=== PATIENT | male | born 1980 | race Caucasian/White ===

== ENCOUNTER 2018-12-04 10:59 | Emergency (ER) | payer OTHER ==
[~2018-12-04] VITALS: Ht 180.3 cm; Wt 159.2 kg
--- NOTE | 2018-12-04 11:15 | NUR ---
Lt lower extremity evelated with x2 pillows.
--- NOTE | 2018-12-04 11:23 | ED General ---
General Chief Complaint: Bite-Animal/Human/Insect Stated Complaint: SNAKE BITE Nursing Triage Note: Pt amb to room #5 w/o difficulty. a&ox4. C/o possible snake bite that occured @ approx 2100 on 12/03/18. Pt reports he was stepping out of his truck when he felt a bite and saw "a brown snake slither away." Mild redness, swelling noted to rt medial ankle. Tympanic temp of 100.4 noted. Nursing Sepsis Screen: No Definite Risk Source of Information: Patient Exam Limitations: No Limitations History of Present Illness Date Seen by Provider: Dec 04, 2018 Time Seen by Provider: 10:56 Initial Comments Here with report states bite to the medial aspect of the right ankle. Occurred at about 9 PM last night. He felt something sting or bite his legs when he stepped out of his truck and the area of concern just above the right ankle. She then noticed a brown snake slithering away. He marked the area last night and kept the leg below the level of the heart overnight. He went to work this morning. He worked about 4 hours but pain increased so he came here. Does note swelling. Did find that he had fever on arrival of 100.4F. He has not taken anything for pain or fever. He is unsure of the type of snake. Timing/Duration: Other (14 hours) Severity: Mild Modifying Factors: worse with Movement; improves with Rest Associated Systoms: Fever/Chills; No Nausea/Vomiting, No Shortness of Air, No Weakness Allergies and Home Medications Allergies Coded Allergies: Penicillins (Verified Allergy, Unknown, 12/04/18) Patient Home Medication List Home Medication List Reviewed: Yes Review of Systems Review of Systems Constitutional: see HPI; No chills; fever EENTM: nose congestion; No throat pain Respiratory: no symptoms reported Cardiovascular: no symptoms reported Gastrointestinal: No abdominal pain, No nausea, No vomiting Genitourinary: no symptoms reported Musculoskeletal: see HPI, muscle pain, other (swelling right lower extremity) Skin: change in color, lesions Psychiatric/Neurological: No Symptoms Reported All Other Systems Reviewed Negative Unless Noted: Yes Past Bvwrrvj-Ajylmq-Ncoynn Hx Past Med/Social Hx: Reviewed Nursing Past Med/Soc Hx Patient Social History Alcohol Use: Denies Use Recreational Drug Use: No Smoking Status: Never a Smoker Recent Foreign Travel: No Contact w/Someone Who Travel: No Recent Infectious Disease Expo: No Past Medical History Surgeries: Yes Appendectomy, Orthopedic, Tonsillectomy Respiratory: No Cardiac: Yes Hypertension Neurological: No Gastrointestinal: No Musculoskeletal: Yes Fractures Endocrine: Yes Diabetes, Non-Insulin dep Did You Recieve Any Treatments: No Psychosocial: No Family Medical History Cancer Physical Exam Vital Signs Vital Signs - First Documented 12/04/18 10:59 Temp 100.4 Pulse 96 Resp 18 B/P (MAP) 164/102 (122) Pulse Ox 97 O2 Delivery Room Air Capillary Refill : Less Than 3 Seconds Height, Weight, BMI Height: 5'11.00" Weight: 351lbs. oz. 159.551486gv; BMI Method:Stated General Appearance: No Apparent Distress, WD/WN HEENT: PERRL/EOMI, TMs Normal, Pharynx Normal Neck: Non Tender, Supple Respiratory: Lungs Clear, Normal Breath Sounds Cardiovascular: Regular Rate, Rhythm, No Murmur Gastrointestinal: Non Tender, Soft Back: Normal Inspection, No CVA Tenderness, No Vertebral Tenderness Extremity: Swelling (right lower extremity swelling from. Ankle to just below the knee. Tenderness noted to the medial aspect of the right lower leg where was noted.) Neurologic/Psychiatric: Alert, Oriented x3 Skin: Warm/Dry, Other (to puncture wounds noted to the medial right lower leg just above the ankle. There is surrounding erythema to the mid calf and down to the upper foot that is mild. There is swelling noted and tenderness to touch in the area of the wound and surrounding about 10 cm.) Progress/Results/Core Measures Suspected Sepsis Recent Fever Within 48 Hours: Yes Infection Criteria Present: None New/Unexplained Altered Menta: No Sepsis Screen: No Definite Risk SIRS Temperature:100.4 Pulse: 96 Respiratory Rate: 18 Laboratory Tests 12/04/18 11:20: White Blood Count 8.1 Blood Pressure 164 /102 Mean: 122 Laboratory Tests 12/04/18 11:20: Creatinine 1.02, INR Comment 1.0, Platelet Count 213, Total Bilirubin 0.6 Results/Orders Lab Results Laboratory Tests Test 12/04/18 11:20 Range/Units White Blood Count 8.1 4.3-11.0 10^3/uL Red Blood Count 5.03 4.35-5.85 10^6/uL Hemoglobin 14.2 13.3-17.7 G/DL Hematocrit 43 40-54 % Mean Corpuscular Volume 85 80-99 FL Mean Corpuscular Hemoglobin 28 25-34 PG Mean Corpuscular Hemoglobin Concent 33 32-36 G/DL Red Cell Distribution Width 14.0 10.0-14.5 % Platelet Count 213 130-400 10^3/uL Mean Platelet Volume 10.8 H 7.4-10.4 FL Neutrophils (%) (Auto) 70 42-75 % Lymphocytes (%) (Auto) 21 12-44 % Monocytes (%) (Auto) 8 0-12 % Eosinophils (%) (Auto) 1 0-10 % Basophils (%) (Auto) 0 0-10 % Neutrophils # (Auto) 5.7 1.8-7.8 X 10^3 Lymphocytes # (Auto) 1.7 1.0-4.0 X 10^3 Monocytes # (Auto) 0.6 0.0-1.0 X 10^3 Eosinophils # (Auto) 0.1 0.0-0.3 10^3/uL Basophils # (Auto) 0.0 0.0-0.1 10^3/uL Prothrombin Time 13.7 12.2-14.7 SEC INR Comment 1.0 0.8-1.4 Activated Partial Thromboplast Time 31 24-35 SEC Fibrinogen 368 221-496 MG/DL Sodium Level 142 135-145 MMOL/L Potassium Level 3.3 L 3.6-5.0 MMOL/L Chloride Level 106 98-107 MMOL/L Carbon Dioxide Level 24 21-32 MMOL/L Anion Gap 12 5-14 MMOL/L Blood Urea Nitrogen 12 7-18 MG/DL Creatinine 1.02 0.60-1.30 MG/DL Estimat Glomerular Filtration Rate > 60 BUN/Creatinine Ratio 12 Glucose Level 127 H 70-105 MG/DL Calcium Level 9.1 8.5-10.1 MG/DL Corrected Calcium 9.1 8.5-10.1 MG/DL Total Bilirubin 0.6 0.1-1.0 MG/DL Aspartate Amino Transf (AST/SGOT) 24 5-34 U/L Alanine Aminotransferase (ALT/SGPT) 28 0-55 U/L Alkaline Phosphatase 77 40-136 U/L Total Protein 7.4 6.4-8.2 GM/DL Albumin 4.0 3.2-4.5 GM/DL My Orders Orders - ALLISON MEEKS MD Cbc With Automated Diff (12/04/18 11:16) Comprehensive Metabolic Panel (12/04/18 11:16) Protime With Inr (12/04/18 11:16) Partial Thromboplastin Time (12/04/18 11:16) Fibrinogen (12/04/18 11:16) Acetaminophen Tablet (Tylenol Tablet) (12/04/18 11:42) Ibuprofen Tablet (Motrin Tablet) (12/04/18 11:53) Ibuprofen Tablet (Motrin Tablet) (12/04/18 12:00) Bactrim Ds Po (12/04/18 12:31) Tdap (Boostrix) Im (12/04/18 12:45) Vital Signs/I&O 12/04/18 12/04/18 10:59 12:01 Temp 100.4 100.4 Pulse 96 Resp 18 B/P (MAP) 164/102 (122) Pulse Ox 97 O2 Delivery Room Air Capillary Refill : Less Than 3 Seconds Blood Pressure Mean: 122 Progress Note : Progress Note Seen and evaluated. Patient is outside window for antivenom as he is 14 hours from snakebite. We will go ahead and check labs. Ibuprofen 800 mg by mouth and Tylenol 1 g by mouth ordered. Monitor patient. 1230: Labs reviewed and no significant abnormality. At this point, patient is past observation. And doing well. Does have local pain. We will go ahead and initiate antibiotics and update tetanus. Bactrim DS one tab by mouth. Discharged home with return precautions. Patient verbalize understanding instructions and agreement with plan. Departure Impression Primary Impression: Snake bite Qualified Codes: W59.11XA - Bitten by nonvenomous snake, initial encounter Disposition: 01 HOME, SELF-CARE Condition: Stable Departure-Patient Inst. Decision time for Depature: 12:34 Referrals: NO,LOCAL PHYSICIAN (PCP) Primary Care Physician Patient Instructions: Snake Bite Add. Discharge Instructions: All discharge instructions reviewed with patient and/or family. Voiced understanding. Keep area clean. Keep right leg elevated as much possible over the next couple of days. You may use ice pack to area of concern to reduce swelling. You may take ibuprofen 800 mg every 8 hours as needed for pain. You may also take Tylenol/acetaminophen 1000 mg every 8 hours as needed for pain.. Off work today and tomorrow and then return as able. Return for worse pain, swelling, weakness, numbness of the leg, difficulty with walking, fever or other concerns as needed. Take medications as directed Scripts Sulfamethoxazole/Trimethoprim (Sulfamethoxazole-Tmp Ds Tablet) 1 Each Tablet 1 EACH PO BID, #14 TAB 0 Refills Prov: ALLISON MEEKS MD 12/04/18 ALLISON MEEKS MD Dec 04, 2018 11:23
[2018-12-04 11:31] LABS: BASOPHILS % (AUTO) 0 % (0-10); EOSINOPHILS # (AUTO) 0.1 10^3/uL (0.0-0.3); EOSINOPHILS % (AUTO) 1 % (0-10); HEMATOCRIT 43 % (40-54); HEMOGLOBIN 14.2 G/DL (13.3-17.7); LYMPHOCYTES # (AUTO) 1.7 X 10^3 (1.0-4.0); LYMPHOCYTES % (AUTO) 21 % (12-44); MEAN CORPUSCULAR HEMOGLOBIN 28 PG (25-34); MEAN CORPUSCULAR HGB CONC 33 G/DL (32-36); MEAN CORPUSCULAR VOLUME 85 FL (80-99); MEAN PLATELET VOLUME 10.8 FL (7.4-10.4); MONOCYTES # (AUTO) 0.6 X 10^3 (0.0-1.0); MONOCYTES % (AUTO) 8 % (0-12); NEUTROPHILS # (AUTO) 5.7 X 10^3 (1.8-7.8); NEUTROPHILS % (AUTO) 70 % (42-75); PLATELET COUNT 213 10^3/uL (130-400); WHITE BLOOD COUNT 8.1 10^3/uL (4.3-11.0)
[2018-12-04] MEDS ORDERED: ACETAMINOPHEN 500 MG TAB (TYLENOL) PO STA (11:42)
[2018-12-04] MEDS ORDERED: IBUPROFEN SUSP 100MG/5ML (MOTRIN) UDC PO ONE (11:45)
[2018-12-04 11:50] LABS: PROTHROMBIN TIME PATIENT 13.7 SEC (12.2-14.7)
[2018-12-04] MEDS ORDERED: IBUPROFEN 800 MG (MOTRIN) TAB PO ONE (11:53)
[2018-12-04 11:59] LABS: ALANINE AMINOTRANSFERASE 28 U/L (0-55); ALKALINE PHOSPHATASE 77 U/L (40-136); BILIRUBIN,TOTAL 0.6 MG/DL (0.1-1.0); BUN/CREATININE RATIO 12; CALCIUM 9.1 MG/DL (8.5-10.1); CARBON DIOXIDE 24 MMOL/L (21-32); CHLORIDE 106 MMOL/L (98-107); CREATININE SERUM 1.02 MG/DL (0.60-1.30); GFR ESTIMATED > 60; GLUCOSE 127 MG/DL (70-105); POTASSIUM 3.3 MMOL/L (3.6-5.0); SODIUM 142 MMOL/L (135-145); TOTAL PROTEIN 7.4 GM/DL (6.4-8.2)
[2018-12-04] MEDS ORDERED: IBUPROFEN 800 MG (MOTRIN) TAB PO STA (12:00)
[2018-12-04] MEDS ORDERED: TRIM/SULFAMETH 160/800 (SEPTRA DS) TAB PO STA (12:31)
[2018-12-04] MEDS ORDERED: SULF-222 PO (12:36)
[2018-12-04] MEDS ORDERED: TETANUS,DIPTH,PERTUSS P/F (BOOSTRIX) 0.5 ML VIAL IM ONE (12:45)
[2018-12-04 12:48] VITALS: BP 146/97
== END 2018-12-04 12:48 | disposition home or self-care (01) ==
LOC: ER 11:00
DX: S90.561A Insect bite (nonvenomous), right ankle, initial encounter (principal); I10 Essential (primary) hypertension; E11.9 Type 2 diabetes mellitus without complications; Z87.81 Personal history of (healed) traumatic fracture; Z88.0 Allergy status to penicillin; Z90.49 Acquired absence of other specified parts of digestive tract; Z90.89 Acquired absence of other organs; W59.11XA Bitten by nonvenomous snake, initial encounter
CPT/HCPCS: 36415; 80053; 85025; 85384; 85610; 85730; 90471; 90715

== ENCOUNTER → 2019-11-13 | Outpatient (CLI) | payer OTHER ==
[~2019-11-13] MED LIST: BARIUM for suspension 96% w/w (Vanilla Silq Medium Density) PO ONE; BARIUM for suspension 98% w/w (Vanilla Silq High Density) PO ONE; SULF-222 PO
--- NOTE | 2019-11-13 11:22 | Diagnostic Imaging Report ---
INDICATION: Reflux. Study is performed prior to bariatric surgery. Patient ingested effervescent crystals as well as thin and thick barium and imaging of the esophagus, stomach and proximal small bowel was performed. The esophagus has a smooth contour. No mass or stricture is identified. No gastroesophageal reflux or hiatal hernia is identified. Stomach is of normal configuration. Visualized proximal small bowel loops are unremarkable. IMPRESSION: Unremarkable upper gastrointestinal. Dictated by: Dictated on workstation # [id number]
== END ==
LOC: RAD 09:06
PROVIDERS: ATTEND Surgery
DX: K21.9 Gastro-esophageal reflux disease without esophagitis (principal)
CPT/HCPCS: 74246

== ENCOUNTER 2020-07-05 15:27 | Inpatient (IN) | payer OTHER ==
[~2020-07-05] VITALS: Ht 177.8 cm; Wt 185.5 kg
[~2020-07-05 15:27] MED LIST changes: -BARIUM for suspension 96% w/w (Vanilla Silq Medium Density) PO ONE; -BARIUM for suspension 98% w/w (Vanilla Silq High Density) PO ONE
--- NOTE | 2020-07-05 15:59 | ED General ---
General Stated Complaint: COVID POSITIVE/LOW O2/FEVER Source of Information: Patient Exam Limitations: No Limitations History of Present Illness Date Seen by Provider: Jul 05, 2020 Time Seen by Provider: 15:56 Initial Comments To ER with reports of shortness of breath. He is on day 8 of Covid illness tested +7 days ago. Oxygen saturation at home 88 to 92%. Type II diabetic. Not currently on medication. Does not have a primary care provider. Timing/Duration: 1 Week Severity: Moderate Associated Systoms: Cough, Shortness of Air, Weakness Allergies and Home Medications Allergies Coded Allergies: Penicillins (Verified Allergy, Unknown, 12/04/18) Home Medications Sulfamethoxazole/Trimethoprim 1 Each Tablet, 1 EACH PO BID Prescribed by: ALLISON MEEKS on 12/04/18 1236 Patient Home Medication List Home Medication List Reviewed: Yes Review of Systems Review of Systems Constitutional: see HPI, chills, malaise, weakness EENTM: see HPI Respiratory: see HPI, cough, short of breath Cardiovascular: no symptoms reported Genitourinary: no symptoms reported Musculoskeletal: no symptoms reported Skin: no symptoms reported Psychiatric/Neurological: No Symptoms Reported Hematologic/Lymphatic: No Symptoms Reported Immunological/Allergic: no symptoms reported Past Fjuidlw-Vjgwxk-Pbrtgd Hx Patient Social History 2nd Hand Smoke Exposure: No Recent Hopitalizations: No Seasonal Allergies Seasonal Allergies: No Past Medical History Surgeries: Yes Appendectomy, Orthopedic, Tonsillectomy Respiratory: No Cardiac: Yes Hypertension Neurological: No Genitourinary: No Gastrointestinal: No Musculoskeletal: Yes Fractures Endocrine: Yes Diabetes, Non-Insulin dep HEENT: No Cancer: No Did You Recieve Any Treatments: No Psychosocial: No Integumentary: No Family Medical History Cancer Physical Exam Vital Signs Vital Signs - First Documented 07/05/20 15:50 Pulse Ox 96 O2 Delivery Nasal Cannula Capillary Refill : Height, Weight, BMI Height: 5'11.00" Weight: 351lbs. oz. 159.096456tz; BMI Method:Stated General Appearance: No Apparent Distress, WD/WN, Obese, Other (Tachypneic, oxygen saturation 87% on room air after arriving to room 9 via wheelchair. Very pleasant.) Eyes: Bilateral Eye Normal Inspection, Bilateral Eye PERRL Respiratory: Normal Breath Sounds, No Accessory Muscle Use, No Respiratory Distress Cardiovascular: Regular Rate, Rhythm, Normal Peripheral Pulses Gastrointestinal: Non Tender, Soft Extremity: Normal Capillary Refill, Normal Inspection Neurologic/Psychiatric: Alert, Oriented x3 Skin: Normal Color, Warm/Dry Progress/Results/Core Measures Suspected Sepsis SIRS Temperature: Pulse: Respiratory Rate: Laboratory Tests 07/05/20 16:00: Blood Pressure / Mean: Laboratory Tests 07/05/20 16:00: Results/Orders Lab Results Laboratory Tests Test 07/05/20 16:00 Range/Units My Orders Orders - GORDO BROWN APRN Cbc With Automated Diff (07/05/20 15:55) Hs C Reactive Protein (07/05/20 15:55) Comprehensive Metabolic Panel (07/05/20 15:55) Fibrin Degradation Products (07/05/20 15:55) Procalcitonin (Pct) (07/05/20 15:55) Ed Iv/Invasive Line Start (07/05/20 15:55) O2 (07/05/20 15:55) Chest 1 View, Ap/Pa Only (07/05/20 15:55) Dexamethasone Tablet (Decadron Tablet) (07/05/20 16:00) Ns Iv 1000 Ml (Sodium Chloride 0.9%) (07/05/20 16:00) Vital Signs/I&O 07/05/20 15:50 Pulse Ox 96 O2 Delivery Nasal Cannula Capillary Refill : Departure Communication (Admissions) 1616-Supplemental O2 at 2L has him up to 94% and has resolved his lightheadedne ss. Impression Primary Impression: Hypoxia Additional Impression: COVID-19 Disposition: ADMITTED INPATIENT Condition: Stable Admissions Decision to Admit Reason: Admit from ER (General) Decision to Admit/Date: Jul 05, 2020 Time/Decision to Admit Time: 16:16 Departure-Patient Inst. Referrals: NO,LOCAL PHYSICIAN (PCP/Family) Primary Care Physician GORDO BROWN APRN Jul 05, 2020 15:59
[2020-07-05] MEDS ORDERED: NS IV 1000 ML 1,000 ML IV SCH (16:00)
[2020-07-05] MEDS ORDERED: dexAMETHasone 6 MG TAB (DECADRON) PO SCH (16:00)
[2020-07-05 16:13] LABS: BASOPHILS % (AUTO) 0 % (0-10); EOSINOPHILS % (AUTO) 0 % (0-10); HEMATOCRIT 44 % (40-54); HEMOGLOBIN 14.6 g/dL (13.3-17.7); LYMPHOCYTES # (AUTO) 1.2 10^3/uL (1.0-4.0); LYMPHOCYTES % (AUTO) 19 % (12-44); MEAN CORPUSCULAR HEMOGLOBIN 28 pg (25-34); MEAN CORPUSCULAR HGB CONC 33 g/dL (32-36); MEAN CORPUSCULAR VOLUME 84 fL (80-99); MEAN PLATELET VOLUME 10.4 fL (9.0-12.2); MONOCYTES # (AUTO) 0.4 10^3/uL (0.0-1.0); MONOCYTES % (AUTO) 7 % (0-12); NEUTROPHILS # (AUTO) 4.6 10^3/uL (1.8-7.8); NEUTROPHILS % (AUTO) 74 % (42-75); PLATELET COUNT 150 10^3/uL (130-400); WHITE BLOOD COUNT 6.2 10^3/uL (4.3-11.0)
[2020-07-05 16:22] LABS: ALBUMIN 3.6 GM/DL (3.2-4.5); CHLORIDE 101 MMOL/L (98-107); POTASSIUM 3.4 MMOL/L (3.6-5.0); SODIUM 136 MMOL/L (135-145)
[2020-07-05 16:23] LABS: CALCIUM 8.3 MG/DL (8.5-10.1)
[2020-07-05 16:24] LABS: GLUCOSE 233 MG/DL (70-105); TOTAL PROTEIN 7.5 GM/DL (6.4-8.2)
[2020-07-05 16:25] LABS: CARBON DIOXIDE 26 MMOL/L (21-32)
[2020-07-05 16:27] LABS: ALKALINE PHOSPHATASE 59 U/L (40-136)
[2020-07-05 16:28] LABS: CREATININE SERUM 0.79 MG/DL (0.60-1.30); GFR ESTIMATED > 60
[2020-07-05 16:29] LABS: BUN/CREATININE RATIO 15
[2020-07-05 16:31] LABS: ALANINE AMINOTRANSFERASE 60 U/L (0-55)
--- NOTE | 2020-07-05 16:49 | Diagnostic Imaging Report ---
INDICATION: Shortness of breath, Covid positive. TECHNIQUE/COMPARISON: A frontal chest was obtained at 4:34 PM. There is no prior study for comparison. FINDINGS: The heart is normal in size. The mediastinal silhouette is unremarkable. There are patchy areas of infiltrate in the lung bases on both sides, suspicious for pneumonia. There is no pneumothorax or pleural fluid. There is some linear atelectatic change in the right midlung versus a trace of fluid in the minor fissure. IMPRESSION: Patchy bibasilar infiltrates are present, suspicious for pneumonia. There is linear opacity in the right midlung which may represent fluid in the minor fissure or atelectasis. The report was faxed to Infection Control by erna@4:48 PM. Dictated by: Dictated on workstation # [id number]
[2020-07-05] MEDS ORDERED: ONDANSETRON 4 MG/2 ML (SDV) Z0FRAN IV PRN (18:45)
[2020-07-05] MEDS ORDERED: IBUPROFEN 600 MG (MOTRIN) TAB PO PRN (18:45)
[2020-07-05] MEDS ORDERED: PROMETHAZINE/ CODEINE SYRUP 5 ML UDC PO PRN (18:45)
[2020-07-05] MEDS ORDERED: CATHETER FLUSH 10 ML SYR IV PRN (19:00)
[2020-07-05] MEDS ORDERED: REMDESIVIR 200 MG/NS 250 ML IVPB IV NR ×2 (19:00)
[2020-07-05] MEDS ORDERED: RT-ALBUTEROL INHALER HFA (VENTOLIN HFA) 18 GM IH PRN (19:30)
[2020-07-05] MEDS: LACTATED RINGERS 1,000 ML IV SCH (19:51)
[2020-07-05] MEDS: ENOXAPARIN 60 MG/0.6 ML (LOVENOX) SYR SC SCH ×2 (19:51→19:54)
[2020-07-05 20:11] VITALS: BP 143/87
[2020-07-05] MEDS: inSUlin ASPART (NovoLOG) 1 UNIT/0.01 ML (CHARGE PER UNIT) SC SCH (20:59)
[2020-07-05] MEDS: RT-ALBUTEROL INHALER HFA (VENTOLIN HFA) 18 GM IH SCH (21:13)
[2020-07-06] VITALS (10 sets, daily range): BP systolic 117–155; BP diastolic 66–90
[2020-07-06] MEDS: LACTATED RINGERS 1,000 ML IV SCH ×3 (04:00→23:21)
[2020-07-06 05:04] LABS: BASOPHILS % (AUTO) 0 % (0-10); EOSINOPHILS % (AUTO) 0 % (0-10); HEMATOCRIT 40 % (40-54); LYMPHOCYTES # (AUTO) 0.9 10^3/uL (1.0-4.0); LYMPHOCYTES % (AUTO) 20 % (12-44); MEAN CORPUSCULAR HEMOGLOBIN 28 pg (25-34); MEAN CORPUSCULAR HGB CONC 32 g/dL (32-36); MEAN CORPUSCULAR VOLUME 87 fL (80-99); MEAN PLATELET VOLUME 10.6 fL (9.0-12.2); MONOCYTES # (AUTO) 0.3 10^3/uL (0.0-1.0); MONOCYTES % (AUTO) 6 % (0-12); NEUTROPHILS # (AUTO) 3.3 10^3/uL (1.8-7.8); NEUTROPHILS % (AUTO) 74 % (42-75); PLATELET COUNT 156 10^3/uL (130-400); WHITE BLOOD COUNT 4.5 10^3/uL (4.3-11.0)
[2020-07-06 05:15] LABS: ALBUMIN 3.3 GM/DL (3.2-4.5)
[2020-07-06 05:16] LABS: CHLORIDE 104 MMOL/L (98-107); POTASSIUM 4.1 MMOL/L (3.6-5.0); SODIUM 139 MMOL/L (135-145)
[2020-07-06 05:17] LABS: CALCIUM 7.8 MG/DL (8.5-10.1)
[2020-07-06 05:18] LABS: GLUCOSE 281 MG/DL (70-105); TOTAL PROTEIN 6.5 GM/DL (6.4-8.2)
[2020-07-06 05:19] LABS: CARBON DIOXIDE 25 MMOL/L (21-32)
[2020-07-06 05:20] LABS: BILIRUBIN,TOTAL 0.8 MG/DL (0.1-1.0)
[2020-07-06 05:21] LABS: ALKALINE PHOSPHATASE 56 U/L (40-136)
[2020-07-06 05:22] LABS: CREATININE SERUM 0.81 MG/DL (0.60-1.30); GFR ESTIMATED > 60
[2020-07-06 05:23] LABS: BUN/CREATININE RATIO 17
[2020-07-06 05:24] LABS: ALANINE AMINOTRANSFERASE 48 U/L (0-55)
[2020-07-06] MEDS: ENOXAPARIN 60 MG/0.6 ML (LOVENOX) SYR SC SCH ×2 (06:18→18:57)
[2020-07-06] MEDS: dexAMETHasone 6 MG TAB (DECADRON) PO SCH (06:20)
[2020-07-06] MEDS: inSUlin ASPART (NovoLOG) 1 UNIT/0.01 ML (CHARGE PER UNIT) SC SCH ×4 (06:20→21:45)
[2020-07-06] MEDS: RT-ALBUTEROL INHALER HFA (VENTOLIN HFA) 18 GM IH SCH ×2 (09:57→19:20)
[2020-07-06] MEDS ORDERED: NS IV 500 ML 500 ML ONE (11:19)
--- NOTE | 2020-07-06 11:25 | History & Physical-Hospitalist ---
History of Present Illness HPI/Chief Complaint Pt is a 39yoCM with a PMH of HTN and NIDDMII who presented to the ER due to hypoxia from known COVID. He states that his symptoms started around 9 days ago and he was monitoring his oyxgen levels at home. At rest they were roughly 88- 91% and when he got up to go to the bathroom they dropped to 80%. On arrival here they were 87% while being wheeled in. This morning he reports feeling somewhat better. He denies loss of taste, nausea, vomiting, diarrhea. Source: patient Date Seen 07/06/20 Time Seen by a Provider: 09:30 Attending Physician Blank Daigle MD PCP No,Local Physician Referring Physician Date of Admission Jul 05, 2020 at 17:14 Home Medications & Allergies Home Medications Reviewed patient Home Medication Reconciliation performed by pharmacy medication reconciliations computer field technician and/or nursing. Patients Allergies have been reviewed. Allergies Allergies Coded Allergies Penicillins (Verified Allergy, Unknown, 12/04/18) Past Pdflhjp-Hrfamk-Yqhpsf Hx Past Med/Social Hx: Reviewed Nursing Past Med/Soc Hx Patient Social History Employed/Student: employed Alcohol Use: Occasionally Uses Recreational Drug Use: No Smoking Status: Unknown if Ever Smoked 2nd Hand Smoke Exposure: No Recent Foreign Travel: No Contact w/other who traveled: No Recent Hopitalizations: No Recent Infectious Disease Expo: Yes (COVID + 06/28/2020) Immunizations Up To Date Date of Influenza Vaccine: Apr 04, 2021 Seasonal Allergies Seasonal Allergies: No Past Medical History Surgeries: Appendectomy, Orthopedic, Tonsillectomy Cardiac: Hypertension Musculoskeletal: Fractures Endocrine: Diabetes, Non-Insulin dep Did You Recieve Any Treatments: No Family History Reviewed Nursing Family Hx Cancer Review of Systems Constitutional: chills, fever, malaise EENTM: no symptoms reported Respiratory: cough, short of breath Cardiovascular: No chest pain, No edema, No Hx of Intervention, No palpitations Gastrointestinal: No abdominal pain, No constipation, No diarrhea, No loss of appetite, No nausea, No vomiting Genitourinary: no symptoms reported Musculoskeletal: no symptoms reported Skin: no symptoms reported Psychiatric/Neurological: No Symptoms Reported Physical Exam Physical Exam Vital Signs Vital Signs - First Documented 07/05/20 07/05/20 18:17 19:15 O2 Flow Rate 2.00 FiO2 28 Capillary Refill : Less Than 3 Seconds Height, Weight, BMI Height: 5'11.00" Weight: 351lbs. oz. 159.113849fc; 58.67 BMI Method:Stated General Appearance: No Apparent Distress, WD/WN, Obese HEENT: PERRL/EOMI, Moist Mucous Membranes; No Scleral Icterus (L), No Scleral Icterus (R) Neck: Normal Inspection, Supple Respiratory: Lungs Clear, No Accessory Muscle Use; No Crackles, No Wheezing; Other (nasal cannula out of nose) Cardiovascular: Regular Rate, Rhythm, No JVD, No Murmur Gastrointestinal: Normal Bowel Sounds, Non Tender, Soft Extremity: No Calf Tenderness, No Pedal Edema Neurologic/Psychiatric: Alert, Oriented x3, Normal Mood/Affect Results Results/Procedures Labs Laboratory Tests 07/05/20 16:00 07/06/20 04:43 Patient resulted labs reviewed. Imaging: Reviewed Imaging Report Imaging [facility], [place] NAME: [facility] REC#: [id number] PT STATUS: REG ER : 1980 PHYSICIAN: GORDO BROWN APRN ADMIT DATE: 07/05/20/ER Signed Date of Exam:07/05/20 CHEST 1 VIEW, AP/PA ONLY INDICATION: Shortness of breath, Covid positive. TECHNIQUE/COMPARISON: A frontal chest was obtained at 4:34 PM. There is no prior study for comparison. FINDINGS: The heart is normal in size. The mediastinal silhouette is unremarkable. There are patchy areas of infiltrate in the lung bases on both sides, suspicious for pneumonia. There is no pneumothorax or pleural fluid. There is some linear atelectatic change in the right midlung versus a trace of fluid in the minor fissure. IMPRESSION: Patchy bibasilar infiltrates are present, suspicious for pneumonia. There is linear opacity in the right midlung which may represent fluid in the minor fissure or atelectasis. The report was faxed to Infection Control by erna@4:48 PM. Dictated by: Dictated on workstation # [id number] Dict: 07/05/20 1645 Trans: 07/05/20 1658 [id number] Interpreted by: LINDSAY TRAN MD Electronically signed by: LINDSAY TRAN MD 07/05/20 6295 Assessment/Plan Admission Diagnosis Acute hypoxic respiratory failure due to COVID19 Admission Status: Inpatient Order (span 2 midnights) Reason for Inpatient Admission: see below Assessment and Plan Acute hypoxic respiratory failure due to COVID19 Continue remdesivir, and decadron Await arrival of convalescent plasma Incentive spirometry Lovenox Procal normal, no indication for abx HTN BP well controlled, trend NIDDMII SSI added Fasting blood sugar this AM 281 A1c, will need metformin likely upon discharge DVT ppx: Lovenox Diagnosis/Problems Diagnosis/Problems (1) Essential (primary) hypertension Status: Chronic (2) Obesity Qualifiers: Obesity type: unspecified obesity type Obesity classification: adult class 3 (BMI >= 40) Serious obesity comorbidity presence: without serious comorbidity Body mass index: BMI 50.0-59.9 Qualified Codes: E66.01 - Morbid (severe) obesity due to excess calories; Z68.43 - Body mass index [BMI] 50.0- 59.9, adult (3) Non-insulin dependent type 2 diabetes mellitus Status: Chronic (4) COVID-19 Status: Acute (5) Hypoxia Status: Acute BLANK DAIGLE MD Jul 06, 2020 11:25
[2020-07-06] MEDS: REMDESIVIR 100 MG/NS 250 ML IVPB IV SCH ×4 (17:38→18:58)
[2020-07-07] VITALS (7 sets, daily range): BP systolic 138–149; BP diastolic 75–93
[2020-07-07] MEDS: LACTATED RINGERS 1,000 ML IV SCH ×3 (02:45→23:17)
[2020-07-07 05:34] LABS: HEMOGLOBIN 12.3 g/dL (13.3-17.7)
[2020-07-07 05:39] LABS: ALBUMIN 3.1 GM/DL (3.2-4.5)
[2020-07-07 05:40] LABS: CHLORIDE 106 MMOL/L (98-107); POTASSIUM 3.7 MMOL/L (3.6-5.0); SODIUM 140 MMOL/L (135-145)
[2020-07-07 05:41] LABS: CALCIUM 7.8 MG/DL (8.5-10.1)
[2020-07-07 05:42] LABS: GLUCOSE 260 MG/DL (70-105)
[2020-07-07 05:43] LABS: CARBON DIOXIDE 24 MMOL/L (21-32)
[2020-07-07 05:44] LABS: BILIRUBIN,TOTAL 0.6 MG/DL (0.1-1.0)
[2020-07-07 05:45] LABS: ALKALINE PHOSPHATASE 52 U/L (40-136)
[2020-07-07 05:46] LABS: CREATININE SERUM 0.76 MG/DL (0.60-1.30); GFR ESTIMATED > 60
[2020-07-07 05:47] LABS: BUN/CREATININE RATIO 21
[2020-07-07 05:48] LABS: ALANINE AMINOTRANSFERASE 41 U/L (0-55)
[2020-07-07] MEDS: inSUlin ASPART (NovoLOG) 1 UNIT/0.01 ML (CHARGE PER UNIT) SC SCH ×4 (06:23→21:20)
[2020-07-07] MEDS: dexAMETHasone 6 MG TAB (DECADRON) PO SCH (06:23)
[2020-07-07] MEDS: ENOXAPARIN 60 MG/0.6 ML (LOVENOX) SYR SC SCH ×2 (06:25→18:07)
[2020-07-07] MEDS: RT-ALBUTEROL INHALER HFA (VENTOLIN HFA) 18 GM IH SCH ×2 (07:57→19:27)
[2020-07-07] MEDS ORDERED: BENZONATATE 100 MG (TESSALON) CAPSULE PO PRN (09:30)
--- NOTE | 2020-07-07 12:16 | Progress Note - Hospitalist ---
Subjective HPI/CC On Admission Date Seen by Provider: Jul 07, 2020 Time Seen by Provider: 12:13 Pt is a 39yoCM with a PMH of HTN and NIDDMII who presented to the ER due to hypoxia from known COVID. He states that his symptoms started around 9 days ago and he was monitoring his oyxgen levels at home. At rest they were roughly 88-91% and when he got up to go to the bathroom they dropped to 80%. On arrival here they were 87% while being wheeled in. This morning he reports feeling somewhat better. He denies loss of taste, nausea, vomiting, diarrhea. Subjective/Events-last exam Pt reports doing well. Still coughing and feeling fatigued but otherwise just still having malaise. Objective Exam Vital Signs Vital Signs Date Time Temp Pulse Resp B/P (MAP) Pulse Ox O2 Delivery O2 Flow Rate FiO2 07/07/20 08:00 36.3 76 18 138/75 (96) 93 Room Air 07/07/20 07:58 2.00 07/05/20 19:15 28 Capillary Refill : Less Than 3 Seconds General Appearance: No Apparent Distress, Obese Respiratory: Lungs Clear, No Accessory Muscle Use, No Respiratory Distress Cardiovascular: Regular Rate, Rhythm, No Murmur Gastrointestinal: Normal Bowel Sounds, Non Tender, Soft Neurologic/Psychiatric: Alert, Oriented x3 Results/Procedures Lab Laboratory Tests 07/07/20 05:06 Patient resulted labs reviewed. Imaging: Reviewed Imaging Report Assessment/Plan Assessment and Plan Assess & Plan/Chief Complaint Acute hypoxic respiratory failure due to COVID19 Continue remdesivir, and decadron s/p 1 unit of convalescent plasma Incentive spirometry Lovenox Procal normal, no indication for abx Add tessalon and honey for cough HTN BP well controlled, trend NIDDMII SSI added A1c, will need metformin likely upon discharge DVT ppx: Lovenox Diagnosis/Problems Diagnosis/Problems (1) Essential (primary) hypertension Status: Chronic (2) Obesity Qualifiers: Obesity type: unspecified obesity type Obesity classification: adult class 3 (BMI >= 40) Serious obesity comorbidity presence: without serious comorbidity Body mass index: BMI 50.0-59.9 Qualified Codes: E66.01 - Morbid (severe) obesity due to excess calories; Z68.43 - Body mass index [BMI] 50.0- 59.9, adult (3) Non-insulin dependent type 2 diabetes mellitus Status: Chronic (4) COVID-19 Status: Acute (5) Hypoxia Status: Acute BLANK JONES MD Jul 07, 2020 12:16
[2020-07-07] MEDS ORDERED: NS IV 1000 ML 1,000 ML IV ONE (14:00)
[2020-07-07] MEDS: REMDESIVIR 100 MG/NS 250 ML IVPB IV SCH ×2 (17:29)
[2020-07-08 05:13] VITALS: BP 156/98
[2020-07-08] MEDS: dexAMETHasone 6 MG TAB (DECADRON) PO SCH (05:18)
[2020-07-08] MEDS: ENOXAPARIN 60 MG/0.6 ML (LOVENOX) SYR SC SCH ×2 (05:18→18:06)
[2020-07-08 06:23] LABS: HEMOGLOBIN 12.8 g/dL (13.3-17.7); MEAN PLATELET VOLUME 11.1 fL (9.0-12.2); WHITE BLOOD COUNT 6.3 10^3/uL (4.3-11.0)
[2020-07-08 06:32] LABS: ALBUMIN 3.2 GM/DL (3.2-4.5); CHLORIDE 105 MMOL/L (98-107); POTASSIUM 3.5 MMOL/L (3.6-5.0); SODIUM 139 MMOL/L (135-145)
[2020-07-08 06:34] LABS: CALCIUM 7.8 MG/DL (8.5-10.1)
[2020-07-08 06:35] LABS: GLUCOSE 245 MG/DL (70-105); TOTAL PROTEIN 6.4 GM/DL (6.4-8.2)
[2020-07-08 06:36] LABS: CARBON DIOXIDE 24 MMOL/L (21-32)
[2020-07-08 06:37] LABS: BILIRUBIN,TOTAL 0.4 MG/DL (0.1-1.0)
[2020-07-08 06:38] LABS: ALKALINE PHOSPHATASE 57 U/L (40-136); CREATININE SERUM 0.77 MG/DL (0.60-1.30); GFR ESTIMATED > 60
[2020-07-08 06:40] LABS: BUN/CREATININE RATIO 18
[2020-07-08 06:41] LABS: ALANINE AMINOTRANSFERASE 41 U/L (0-55)
[2020-07-08] MEDS: inSUlin ASPART (NovoLOG) 1 UNIT/0.01 ML (CHARGE PER UNIT) SC SCH ×4 (06:53→21:13)
[2020-07-08] MEDS: LACTATED RINGERS 1,000 ML IV SCH (06:54)
[2020-07-08] MEDS: RT-ALBUTEROL INHALER HFA (VENTOLIN HFA) 18 GM IH SCH (07:15)
[2020-07-08 08:30] VITALS: BP 141/93
[2020-07-08 11:30] VITALS: BP 166/79
--- NOTE | 2020-07-08 13:33 | Progress Note - Hospitalist ---
Subjective HPI/CC On Admission Date Seen by Provider: Jul 08, 2020 Time Seen by Provider: 09:00 Pt is a 39yoCM with a PMH of HTN and NIDDMII who presented to the ER due to hypoxia from known COVID. He states that his symptoms started around 9 days ago and he was monitoring his oyxgen levels at home. At rest they were roughly 88-91% and when he got up to go to the bathroom they dropped to 80%. On arrival here they were 87% while being wheeled in. This morning he reports feeling somewhat better. He denies loss of taste, nausea, vomiting, diarrhea. Subjective/Events-last exam Pt reports doing well. No complaints. Still has some chest tightness. Objective Exam Vital Signs Vital Signs Date Time Temp Pulse Resp B/P (MAP) Pulse Ox O2 Delivery O2 Flow Rate FiO2 07/08/20 11:30 37.2 88 18 166/79 (108) 95 Room Air 07/07/20 20:35 2.00 07/05/20 19:15 28 Capillary Refill : Less Than 3 SecondsLess Than 3 Seconds General Appearance: No Apparent Distress, WD/WN, Obese Respiratory: Lungs Clear, No Respiratory Distress Cardiovascular: Regular Rate, Rhythm, No Murmur Neurologic/Psychiatric: Alert, Oriented x3 Results/Procedures Lab Laboratory Tests 07/08/20 05:50 Patient resulted labs reviewed. Imaging: Reviewed Imaging Report Assessment/Plan Assessment and Plan Assess & Plan/Chief Complaint Acute hypoxic respiratory failure due to COVID19 Continue remdesivir and decadron s/p 1 unit of convalescent plasma Incentive spirometry Lovenox Procal normal, no indication for abx Continue tessalon and honey for cough HTN BP well controlled, trend NIDDMII SSI added A1c 10.1, will need metformin upon discharge DVT ppx: Lovenox Diagnosis/Problems Diagnosis/Problems (1) Essential (primary) hypertension Status: Chronic (2) Obesity Qualifiers: Obesity type: unspecified obesity type Obesity classification: adult class 3 (BMI >= 40) Serious obesity comorbidity presence: without serious comorbidity Body mass index: BMI 50.0-59.9 Qualified Codes: E66.01 - Morbid (severe) obesity due to excess calories; Z68.43 - Body mass index [BMI] 50.0- 59.9, adult (3) Non-insulin dependent type 2 diabetes mellitus Status: Chronic (4) COVID-19 Status: Acute (5) Hypoxia Status: Acute BLANK JONES MD Jul 08, 2020 13:33
[2020-07-08 15:59] VITALS: BP 157/91
[2020-07-08] MEDS: REMDESIVIR 100 MG/NS 250 ML IVPB IV SCH ×2 (18:05)
[2020-07-08 20:09] VITALS: BP 149/79
[2020-07-08 23:31] VITALS: BP 134/86
[2020-07-09 06:34] LABS: HEMOGLOBIN 13.2 g/dL (13.3-17.7); MEAN PLATELET VOLUME 10.5 fL (9.0-12.2); WHITE BLOOD COUNT 5.8 10^3/uL (4.3-11.0)
[2020-07-09] MEDS: dexAMETHasone 6 MG TAB (DECADRON) PO SCH (06:41)
[2020-07-09] MEDS: ENOXAPARIN 60 MG/0.6 ML (LOVENOX) SYR SC SCH (06:42)
[2020-07-09 06:45] LABS: ALBUMIN 3.2 GM/DL (3.2-4.5)
[2020-07-09 06:46] LABS: CHLORIDE 105 MMOL/L (98-107); POTASSIUM 3.5 MMOL/L (3.6-5.0); SODIUM 141 MMOL/L (135-145)
[2020-07-09 06:47] LABS: CALCIUM 7.9 MG/DL (8.5-10.1)
[2020-07-09 06:48] LABS: GLUCOSE 215 MG/DL (70-105); TOTAL PROTEIN 6.6 GM/DL (6.4-8.2)
[2020-07-09 06:49] LABS: CARBON DIOXIDE 26 MMOL/L (21-32)
[2020-07-09 06:50] LABS: BILIRUBIN,TOTAL 0.5 MG/DL (0.1-1.0)
[2020-07-09 06:51] LABS: ALKALINE PHOSPHATASE 54 U/L (40-136)
[2020-07-09 06:52] LABS: CREATININE SERUM 0.84 MG/DL (0.60-1.30); GFR ESTIMATED > 60
[2020-07-09 06:53] LABS: BUN/CREATININE RATIO 13
[2020-07-09 06:55] LABS: ALANINE AMINOTRANSFERASE 61 U/L (0-55)
[2020-07-09] MEDS: inSUlin ASPART (NovoLOG) 1 UNIT/0.01 ML (CHARGE PER UNIT) SC SCH ×2 (07:04→12:30)
[2020-07-09 08:10] VITALS: BP 141/99
[2020-07-09] MEDS: RT-ALBUTEROL INHALER HFA (VENTOLIN HFA) 18 GM IH SCH ×2 (08:26→08:27)
[2020-07-09] MEDS ORDERED: ALBU18HF2 IH (10:56)
[2020-07-09] MEDS ORDERED: DEXA6TAB PO (10:56)
--- NOTE | 2020-07-09 10:58 | Discharge Inst-Simple/Standard ---
Discharge Inst-Standard Discharge Medications New, Converted or Re-Newed RX: Transmitted to Pharmacy Patient Instructions/Follow Up Plan of Care/Instructions/FU: Please continue to take your medications as written. Please follow up with Dr Soliman or a PCP in the next week or two to follow up this hospital stay. Activity as Tolerated: Yes Discharge Diet: No Restrictions Return to The Hospital For: Chest pain, shortness of breath, confusion, fever, if you feel you are getting worse. BLANK JONES MD Jul 09, 2020 10:58
--- NOTE | 2020-07-09 11:01 | Discharge Summary ---
Diagnosis/Chief Complaint Date of Admission Jul 05, 2020 at 17:14 Date of Discharge Discharge Date: Jul 09, 2020 Admission Diagnosis Acute hypoxic respiratory failure due to COVID19 Primary Care No,Local Physician Discharge Diagnosis (1) Essential (primary) hypertension Status: Chronic (2) Obesity (3) Non-insulin dependent type 2 diabetes mellitus Status: Chronic (4) COVID-19 Status: Acute (5) Hypoxia Status: Acute Discharge Summary Discharge Physical Exam Allergies: Coded Allergies: Penicillins (Verified Allergy, Unknown, 12/04/18) Vitals & I&Os Vital Signs Date Time Temp Pulse Resp B/P (MAP) Pulse Ox O2 Delivery O2 Flow Rate FiO2 07/09/20 10:09 80 86 07/09/20 10:08 Room Air 07/09/20 08:10 35.7 19 141/99 (113) 07/08/20 23:31 2.00 07/05/20 19:15 28 General Appearance: No Apparent Distress Respiratory: Lungs Clear, No Accessory Muscle Use, No Respiratory Distress Cardiovascular: Regular Rate, Rhythm, No Murmur Neurologic/Psychiatric: Alert, Oriented x3 Hospital Course Pt was admitted due to acute hypoxic respiratory failure from COVID19. He was treated with Remdesivir, decadron, and convalescent plasma and did well. He was titrated off of oxygen at rest completely but did require exertional oxygen which was arranged prior to discharge. He did have high blood sugars and has known diabetes. A1c was 10.1 and I recommended starting metformin but he declined and wants to follow up with his primary care doctor. He is going to establish with Dr Woody Soliman. He was discharged with an albuterol inhaler and to complete a course of decadron. Labs (last 24 hrs) Laboratory Tests 07/08/20 15:51: Glucometer 292H 07/08/20 20:10: Glucometer 293H 07/09/20 06:20: White Blood Count 5.8, Red Blood Count 4.68, Hemoglobin 13.2L, Hematocrit 40, Mean Corpuscular Volume 85, Mean Corpuscular Hemoglobin 28, Mean Corpuscular Hemoglobin Concent 33, Red Cell Distribution Width 13.1, Platelet Count 192, Mean Platelet Volume 10.5, Sodium Level 141, Potassium Level 3.5L, Chloride Level 105, Carbon Dioxide Level 26, Anion Gap 10, Blood Urea Nitrogen 11, Creatinine 0.84, Estimat Glomerular Filtration Rate > 60, BUN/Creatinine Ratio 13, Glucose Level 215H, Calcium Level 7.9L, Corrected Calcium 8.5, Total Vinnie irubin 0.5, Aspartate Amino Transf (AST/SGOT) 56H, Alanine Aminotransferase (ALT/SGPT) 61H, Alkaline Phosphatase 54, Total Protein 6.6, Albumin 3.2, Procalcitonin 0.02 07/09/20 06:38: Glucometer 213H 07/09/20 11:30: Glucometer 417*H 07/09/20 11:32: Glucometer 323H Patient resulted labs reviewed. Pending Labs Laboratory Tests 07/09/20 11:30: Glucometer 417 07/09/20 11:32: Glucometer 323 Imaging: Reviewed Imaging Report Discussion & Recommendations Discharge Planning: >30 minutes discharge planning Discharge Home Medications: Active Scripts Active Dexamethasone 6 Mg Tablet 6 Mg PO DAILY@0700 Ventolin Hfa (Albuterol Sulfate) 18 Gm Hfa.aer.ad 0 Gm IH RTQ2H PRN Instructions to patient/family Please see electronic discharge instructions given to patient. Problem Qualifiers (1) Obesity: Obesity type: unspecified obesity type Obesity classification: adult class 3 (BMI >= 40) Serious obesity comorbidity presence: without serious comorbidity Body mass index: BMI 50.0-59.9 Qualified Codes: E66.01 - Morbid (severe) obesity due to excess calories; Z68.43 - Body mass index [BMI] 50.0-59.9, adult BLANK JONES MD Jul 09, 2020 11:01
[2020-07-09] MEDS ORDERED: REMDESIVIR 100 MG/NS 250 ML IVPB IV NR ×2 (11:30)
[2020-07-09 15:58] VITALS: BP 141/99
== END 2020-07-09 15:45 | disposition home or self-care (01) | DRG 177 ==
LOC: EDUNIT# 15:27 → ER 15:28 → 4TH 17:14
PROVIDERS: ADMIT Family Medicine; ATTEND Family Medicine
PROC: XW033E5 Introduction of Remdesivir Anti-infective into Peripheral Vein, Percutaneous Approach, New Technology Group 5 (ICD-10-PCS; principal; 2020-07-06)
PROC: XW13325 Transfusion of Convalescent Plasma (Nonautologous) into Peripheral Vein, Percutaneous Approach, New Technology Group 5 (ICD-10-PCS; 2020-07-06)
DX: U07.1 COVID-19 (principal); J96.01 Acute respiratory failure with hypoxia; I10 Essential (primary) hypertension; E66.9 Obesity, unspecified; E11.9 Type 2 diabetes mellitus without complications; Z88.0 Allergy status to penicillin; Z73.0 Burn-out
CPT/HCPCS: 36415; 71045; 80053; 82962; 83036; 84145; 85025; 85027; 85379; 86141; 86850; 86900; 86901; 94640; 94664; 94760; 94761; 96360; 96361

== ENCOUNTER 2021-03-04 15:30 | Outpatient (RCR) | payer OTHER ==
[~2021-03-04 15:30] MED LIST changes: +ALBU18HF2 IH; +DEXA6TAB PO
== END 2021-05-02 | disposition home or self-care (01) ==
PROVIDERS: ATTEND Family Medicine
DX: M54.2 Cervicalgia (principal); M54.9 Dorsalgia, unspecified

== ENCOUNTER 2021-08-22 09:12 | Outpatient (RCR) | payer OTHER | END 2021-08-25 | disposition home or self-care (01) | DX: M54.2 Cervicalgia (principal); I10 Essential (primary) hypertension; E11.9 Type 2 diabetes mellitus without complications ==

== ENCOUNTER 2021-09-01 09:38 | Outpatient (RCR) | payer OTHER | END 2021-09-08 11:05 | disposition home or self-care (01) | DX: M54.2 Cervicalgia (principal); I10 Essential (primary) hypertension; E11.9 Type 2 diabetes mellitus without complications ==